=== PATIENT | male | born 1950 | race Caucasian/White ===

== ENCOUNTER → 2023-08-07 19:58 | Outpatient (REF) | payer MEDICARE, SELFPAY | LOC: MRI 19:58 | PROVIDERS: ATTENDING PHYSICIAN Internal Medicine Geriatric Medicine | DX: M54.16 Radiculopathy, lumbar region (principal) | CPT/HCPCS: 72158; A9575 ==

== ENCOUNTER → 2024-07-28 13:22 | Outpatient (REF) | payer MEDICARE, SELFPAY | LOC: RAD 13:22 | PROVIDERS: ATTENDING PHYSICIAN Internal Medicine Geriatric Medicine | DX: Z00.00 Encounter for general adult medical examination without abnormal findings (principal); I10 Essential (primary) hypertension; M54.16 Radiculopathy, lumbar region; L24.4 Irritant contact dermatitis due to drugs in contact with skin; Z13.31 Encounter for screening for depression; E55.9 Vitamin D deficiency, unspecified; Z13.89 Encounter for screening for other disorder; E78.2 Mixed hyperlipidemia; J98.8 Other specified respiratory disorders | CPT/HCPCS: 71101 ==

== ENCOUNTER → 2024-08-05 13:19 | Outpatient (REF) | payer MEDICARE, SELFPAY | LOC: HWRAD 13:19 | PROVIDERS: ATTENDING PHYSICIAN Internal Medicine Geriatric Medicine | DX: R05.3 Chronic cough (principal) | CPT/HCPCS: 71250 ==

== ENCOUNTER → 2024-08-11 09:15 | Outpatient (REF) | payer MEDICARE, SELFPAY | LOC: RSP 09:15 | PROVIDERS: ATTENDING PHYSICIAN Internal Medicine Geriatric Medicine | DX: R06.2 Wheezing (principal); J98.8 Other specified respiratory disorders; R06.02 Shortness of breath | CPT/HCPCS: 94727; 94729; 88738; 94010 ==

== ENCOUNTER → 2024-08-15 11:23 | Outpatient (REF) | payer MEDICARE, SELFPAY | LOC: HWRAD 11:23 | PROVIDERS: ATTENDING PHYSICIAN Internal Medicine Geriatric Medicine | DX: E04.1 Nontoxic single thyroid nodule (principal) | CPT/HCPCS: 76536 ==

== ENCOUNTER → 2024-09-02 10:50 | Outpatient (REF) | payer MEDICARE, SELFPAY | LOC: HWRAD 10:50 | PROVIDERS: ATTENDING PHYSICIAN Internal Medicine Geriatric Medicine | DX: E04.1 Nontoxic single thyroid nodule (principal); R91.8 Other nonspecific abnormal finding of lung field; Z13.89 Encounter for screening for other disorder | CPT/HCPCS: 75571 ==

== ENCOUNTER → 2025-01-17 08:23 | Outpatient (REF) | payer MEDICARE, SELFPAY | LOC: RSP 08:23 | PROVIDERS: ATTENDING PHYSICIAN Internal Medicine Geriatric Medicine | DX: R06.2 Wheezing (principal); J98.8 Other specified respiratory disorders; R06.02 Shortness of breath | CPT/HCPCS: 88738; 94010; 94727; 94729 ==